=== PATIENT | female | born 1975 | race Caucasian/White ===

== ENCOUNTER 2022-04-08 16:43 | Emergency (ER) | payer MEDICAID ==
[2022-04-08 18:29] LABS: BASOPHILS # (AUTO) 0.1 10^3/uL (0.0-0.1); BASOPHILS % (AUTO) 0.8 %; EOSINOPHILS # (AUTO) 0.3 10^3/uL (0.0-0.7); EOSINOPHILS % (AUTO) 3.4 %; HCT - HEMATOCRIT 33.1 % (37.0-47.0); LYMPHOCYTES # (AUTO) 3.1 10^3/uL (1.5-3.5); LYMPHOCYTES % (AUTO) 41.9 %; MEAN CORPUSCULAR HEMOGLOBIN 24.4 pg (27.0-31.0); MEAN CORPUSCULAR HGB CONC 30.2 g/dL (32.0-36.0); MEAN CORPUSCULAR VOLUME 80.9 fL (81.0-99.0); MEAN PLATELET VOLUME 9.1 fL (7.9-10.8); MONOCYTES # (AUTO) 0.4 10^3/uL (0.0-1.0); MONOCYTES % (AUTO) 5.3 %; NEUTROPHILS # (AUTO) 3.5 10^3/uL (1.5-6.6); NEUTROPHILS % (AUTO) 48.3 %; PLT - PLATELET COUNT 186 10^3/uL (130-450); RED BLOOD COUNT 4.09 10^6/uL (4.20-5.40); RED CELL DISTRIBUTION WIDTH 14.8 % (12.0-15.0); WHITE BLOOD COUNT 7.3 x10^3/uL (4.8-10.8)
[2022-04-08 18:34] LABS: ALBUMIN/GLOBULIN RATIO 1.2 (1.0-2.2); BILIRUBIN,TOTAL 0.5 mg/dL (0.2-1.0); CREATININE 1.2 mg/dL (0.4-1.0); POTASSIUM 3.9 mmol/L (3.5-5.0); TOTAL PROTEIN 7.4 g/dL (6.7-8.2)
--- NOTE | 2022-04-08 18:58 | ED Physician Documentation ---
History of Present Illness - Stated complaint Stated Complaint: LIGHT HEADED - Chief complaint Chief Complaint: Neuro - Additonal information Additional information: 38-year-old female presents emergency department for episodes of near syncope. She reports that over the last month or so she frequently finds that she is lightheaded and feels as though she is going to pass out especially with any stair activities such as ascending or even descending the stairs. She spoke to her study abroad advisor on the phone about this and he reduced her carvedilol from 6.25 mg daily down to 3.125 mg daily. She is scheduled to see him in follow-up in 1 month. Past medical history is most significant for myocardial infarction in 2016. She is being medically managed. She is on daily aspirin statin as well as the carvedilol. She is also on some antidepressants and various vitamins. She is denying any chest pain or shortness of air. No focal neuro symptoms. She has not fainted Review of Systems Eyes: reports: Reviewed and negative Throat: reports: Reviewed and negative Cardiac: reports: Reviewed and negative Respiratory: reports: Reviewed and negative GI: reports: Reviewed and negative : reports: Reviewed and negative Skin: reports: Reviewed and negative Musculoskeletal: reports: Reviewed and negative Neurologic: reports: Near syncope. denies: Headache, Head injury, LOC Psychiatric: reports: Reviewed and negative Endocrine: reports: Reviewed and negative PD PAST MEDICAL HISTORY - Allergies Allergies/Adverse Reactions: Allergies Allergy/AdvReac Type Severity Reaction Status Date / Time acetaminophen [From Vicodin] AdvReac Itching Verified 04/08/22 17:10 hydrocodone [From Vicodin] AdvReac Itching Verified 04/08/22 17:10 PD ED PE NORMAL - General General: Alert and oriented X 3, No acute distress - HEENT HEENT: Atraumatic, Moist mucous membranes - Neck Neck: Supple, no meningeal sign, No adenopathy - Cardiac Cardiac: RRR, No murmur - Respiratory Respiratory: No respiratory distress, Clear bilaterally - Abdomen Abdomen: Normal bowel sounds, Soft, Non tender - Back Back: No CVA TTP, No spinal TTP - Derm Derm: Normal color, Warm and dry, No rash - Extremities Extremities: No deformity, No tenderness to palpate, Normal ROM s pain - Neuro Neuro: Alert and oriented X 3, security researcher 2-12 intact Eye Opening: Spontaneous Motor: Obeys Commands - Psych Psych: Normal mood Results - Vitals Vitals: Vital Signs - 24 hr 04/08/22 04/08/22 04/08/22 17:05 19:02 19:14 Temperature 36.4 C L Heart Rate 109 H 73 Heart Rate [ 102 H Sitting] Heart Rate [ 93 Standing] Heart Rate [ 92 Supine] Respiratory 14 16 Rate Blood Pressure 96/63 119/80 Blood Pressure 111/83 H [Sitting] Blood Pressure 110/76 [Standing] Blood Pressure 129/89 H [Supine] O2 Saturation 100 98 04/08/22 19:33 Temperature Heart Rate Heart Rate [ Sitting] Heart Rate [ Standing] Heart Rate [ Supine] Respiratory 16 Rate Blood Pressure Blood Pressure [Sitting] Blood Pressure [Standing] Blood Pressure [Supine] O2 Saturation Oxygen O2 Source Room air - EKG (time done) 1846 Rate: Rate (enter#) (94) Rhythm: NSR [place]: Normal Intervals: Normal SD QRS: No: Normal (QRS greater than 112 ms.) Ischemia: Non specific changes Compare to prior EKG: Old EKG unavailable - Labs Labs: Laboratory Tests 04/08/22 04/08/22 18:20 18:20 WBC 7.3 RBC 4.09 L Hgb 10.0 L Hct 33.1 L MCV 80.9 L MCH 24.4 L MCHC 30.2 L RDW 14.8 Plt Count 186 MPV 9.1 Neut # (Auto) 3.5 Lymph # (Auto) 3.1 [place] # (Auto) 0.4 Eos # (Auto) 0.3 Baso # (Auto) 0.1 Absolute Nucleated RBC 0.00 Nucleated RBC % 0.0 Sodium 138 Potassium 3.9 Chloride 104 Carbon Dioxide 27 Anion Gap 7.0 BUN 18 Creatinine 1.2 H Estimated GFR (MDRD) 48 L Glucose 108 H Calcium 10.0 Total Bilirubin 0.5 AST 27 ALT 40 Alkaline Phosphatase 141 H Total Protein 7.4 Albumin 4.0 Globulin 3.4 Albumin/Globulin Ratio 1.2 PD MEDICAL DECISION MAKING - ED course Complexity details: reviewed results, re-evaluated patient, considered differential, d/w patient ED course: 46-year-old female presents emergency department for evaluation of several weeks near syncope especially when ascending or descending stairs. She does have a history of myocardial infarction medically managed since 2016. She does have known mitral valve regurg. Here in the emergency department screening EKG was nonischemic. CBC electrolytes and troponin were all negative. Orthostatics were also negative. her creatinine is just very mildly elevated 1.2. She may be mildly dry and I have advised her to increase her hydration. However the cause of the near syncope is not clear though I would not make a recommendation to further reduce the dose of Coreg given negative orthostatics. I make the recommendation to follow closely with cardiology. She may benefit from a Holter monitor to evaluate for tachyarrhythmia and/or an echocardiogram to evaluate structural function with a known mitral valve regurg. As well she may benefit from a stress test. Patient is comfortable with the discharge home as well is the plan for follow-up and emergent return precautions were discussed. Departure - Departure Disposition: 01 Home, Self Care Clinical Impression: Near syncope Condition: Stable Record reviewed to determine appropriate education?: Yes Instructions: ED Near Syncope Unkn Comments: Santa you are seen today in the emergency department because over the last several weeks you have had a few episodes of near syncope especially when ascending or descending stairs. I would like you to talk with your study abroad advisor about this. With your known history of mitral valve regurg as well as your previous myocardial infarction you may benefit from a Holter monitor to assess for heart rhythms with activity, an echocardiogram to evaluate for mitral valve regurgitation that could be contributing to the symptoms and/or a stress test. Here in the emergency department your labs, EKG chest x-ray did not show any worrisome findings. You did not have orthostatic hypotension. You may be just mildly dehydrated and I encourage you to increase your water intake. If at any point you find that your symptoms are worsening, you develop chest pain, shortness of air or do have fainting episodes and please return imm ediately to the ER for second evaluation.
[2022-04-08 20:29] VITALS: BP 117/83
== END 2022-04-08 20:15 | disposition home or self-care (01) ==
LOC: ED 16:43
DX: R55 Syncope and collapse (principal); R79.89 Other specified abnormal findings of blood chemistry
CPT/HCPCS: 36415; 80053; 85025; 93005; 99283; 99284

== ENCOUNTER 2022-10-15 06:32 | Emergency (ER) | payer MEDICAID ==
--- NOTE | 2022-10-15 07:53 | ED Physician Documentation ---
PD HPI HEENT - Stated complaint Stated Complaint: EAR PX - Chief complaint Chief Complaint: Heent - History obtained from History obtained from: Patient - History of Present Illness Timing - onset: Today Timing - duration: Hours (noted blood from right ear this morning. No noted trauma, sneezing, etc. Has had some congestion/seasonal allergies the past week. Ear tube in place right ear for recurrent infections and has been working okay.) Timing - details: Abrupt onset, Still present Location: Right ear Associated symptoms: Congestion. No: Fever, Rhinorrhea Recently seen: Not recently seen Review of Systems Constitutional: denies: Fever, Chills Nose: reports: Rhinorrhea / runny nose, Congestion Throat: denies: Sore throat Respiratory: denies: Cough PD PAST MEDICAL HISTORY - Past Medical History HEENT: Other (recurrent ear infections right with ear tube placed 6 months ago.) - Present Medications Home Medications: Ambulatory Orders Medication Instructions Recorded Confirmed cephALEXin [Keflex] 500 mg PO TID #20 cap 10/15/22 - Allergies Allergies/Adverse Reactions: Allergies Allergy/AdvReac Type Severity Reaction Status Date / Time acetaminophen [From Vicodin] AdvReac Itching Verified 04/08/22 17:10 hydrocodone [From Vicodin] AdvReac Itching Verified 04/08/22 17:10 PD ED PE NORMAL - Vitals Vital signs reviewed: Yes - General General: Alert and oriented X 3, No acute distress, Well developed/nourished - HEENT HEENT: Pharynx benign, Other (left ear and canal normal. Right canal normal. TM with eartube in place, some clot of blood in canal. No purulence but the TM is red and swollen, with purple blood behind it. No active bleeding from tube.) - Neck Neck: Supple, no meningeal sign, No adenopathy Results - Vitals Vitals: Vital Signs - 24 hr 10/15/22 08:25 Heart Rate 89 Respiratory 16 Rate Blood Pressure 114/82 H O2 Saturation 98 Oxygen O2 Source Room air PD Medical Decision Making - ED course Complexity details: considered differential (she has ear tube still in place and seems to be working with regard to draining blood that is behind ear drum. Redness and swelling without purulence per se, but presume infectious cause. ), d/w patient Departure - Departure Disposition: 01 Home, Self Care Clinical Impression: Otitis media, Retained myringotomy tube in right ear Condition: Stable Record reviewed to determine appropriate education?: Yes Instructions: ED Otitis Media Acute Adult Prescriptions: cephALEXin [Keflex] 500 mg PO TID #20 cap Comments: The ET tube appears in place and working. There is some redness and swelling around the eardrum and the tissue around. There is some blood noted if at the ear tube. The ear canal appears normal without any signs of infection of the soft tissue there. It looks like a ear infection with some bleeding. We can treat her with cephalexin and use Tylenol ibuprofen if needed for pains. I would anticipate improvement over the next several days. I sent your prescription to [facility]. Discharge Date/Time: 10/15/22 08:27
[2022-10-15] MEDS ORDERED: IBUPROFEN 600 MG TABLET PO STA (08:05)
[2022-10-15] MEDS ORDERED: cephALEXin 250 MG CAPSULE PO STA (08:05)
[2022-10-15 08:28] VITALS: BP 114/82
== END 2022-10-15 08:27 | disposition home or self-care (01) ==
LOC: ED 06:32
DX: H66.91 Otitis media, unspecified, right ear (principal); Z96.22 Myringotomy tube(s) status
CPT/HCPCS: 99282; 99283; A9270

== ENCOUNTER 2023-03-23 11:07 | Outpatient (CLI) | payer MEDICAID ==
--- NOTE | 2023-03-23 12:06 | XRAY Report ---
PROCEDURE: Lumbar Spine 2 View INDICATIONS: LOW BACK PAIN TECHNIQUE: 3 views of the lumbar spine were acquired. COMPARISON: None. FINDINGS: Bones: 5 [id number] vertebrae are present. There is normal bony alignment. No vertebral body compression fractures. No suspicious bony lesions. No disc space narrowing. No significant degenera tive changes. No facet arthropathy. Soft tissues: Overlying bowel gas pattern is normal. No suspicious soft tissue calcifications. IMPRESSION: 1. No significant degenerative changes or disc disease identified. 2. No acute abnormality. Reviewed by: Louis Montejo on 03/23/2023 12:05 PM PDT Approved by: Louis Montejo on 03/23/2023 12:05 PM PDT Station ID: [id number]
== END 2023-03-23 11:08 | disposition home or self-care (01) ==
LOC: DI 11:07
PROVIDERS: ATTEND Family Medicine
DX: M54.50 Low back pain, unspecified (principal)

== ENCOUNTER 2023-06-28 14:11 | Emergency (ER) | payer MEDICAID ==
[2023-06-28 14:37] VITALS: BP 132/62; O2SAT 100
--- NOTE | 2023-06-28 17:09 | ED Physician Documentation ---
PD HPI HEENT - Stated complaint Stated Complaint: HEADACHE, CONGESTION - Chief complaint Chief Complaint: Resp - History obtained from History obtained from: Patient - Additional information Additional information: 47-year-old woman with history of scleroderma with remote stem cell transplant for same, history of [place]. She is been sick for a month with nonproductive cough, was seen in the clinic and got prednisone, but worsened over the last day with a lot of sinus pressure. No fevers. PD PAST MEDICAL HISTORY - Past Medical History Past Medical History: Yes Cardiovascular: Hypertension Respiratory: Asthma Endocrine/Autoimmune: HyPOthyroidism GI: GERD HEENT: Other Psych: Depression - Past Surgical History Past Surgical History: Yes - Present Medications Home Medications: Ambulatory Orders Medication Instructions Recorded Confirmed cephALEXin [Keflex] 500 mg PO TID #20 cap 10/15/22 Albuterol Sulf [Ventolin Hfa 1 - 2 puffs INH Q4HR PRN #1 each 06/28/23 Inhaler] Amox/Clav 875/125 [Augmentin] 1 each PO Q12H #20 tablet 06/28/23 Benzonatate [Tessalon] 200 mg PO TID PRN #20 cap 06/28/23 - Allergies Allergies/Adverse Reactions: Allergies Allergy/AdvReac Type Severity Reaction Status Date / Time hydrocodone [From Vicodin] AdvReac Itching Verified 06/28/23 16:50 - Social History Does the pt smoke?: No Smoking Status: Never smoker Does the pt drink ETOH?: No Does the pt have substance abuse?: No - Immunizations Immunizations are current?: Yes PD ED PE NORMAL - Vitals Vital signs reviewed: Yes - General General: Alert and oriented X 3, No acute distress - HEENT HEENT: Other (TMs normal, tender to both maxillary sinuses. Oropharynx normal.) - Neck Neck: Supple, no meningeal sign, No bony TTP - Cardiac Cardiac: RRR, No murmur - Respiratory Respiratory: No respiratory distress, Other (Mild expiratory wheeze, no focal findings) - Abdomen Abdomen: Non tender Results - Vitals Vitals: Vital Signs - 24 hr 06/28/23 14:23 Temperature 36.8 C Heart Rate 100 Respiratory 16 Rate Blood Pressure 132/62 H O2 Saturation 100 Oxygen O2 Source Room air Departure - Departure Disposition: Home, Self Care Clinical Impression: Sinusitis Qualifiers: Sinusitis location: unspecified location Chronicity: acute Recurrence: recurrent Qualified Code(s): J01.91 - Acute recurrent sinusitis, unspecified Condition: Good Record reviewed to determine appropriate education?: Yes Instructions: ED Sinusitis Abx Tx Prescriptions: Albuterol Sulf [Ventolin Hfa Inhaler] 1 - 2 puffs INH Q4HR PRN #1 each PRN Reason: Shortness Of Air/Wheezing Amox/Clav 875/125 [Augmentin] 1 each PO Q12H #20 tablet Benzonatate [Tessalon] 200 mg PO TID PRN #20 cap PRN Reason: Cough Comments: I sent your prescription electronically to [facility] in [place]. It seems today that you probably have a sinus infection, and I am prescribing antibiotics, something for the cough, and an inhaler. Call your doctor to arrange a follow-up appointment, make the next available appointment. In the interim, return anytime if worse or if new symptoms develop.
== END 2023-06-28 17:17 | disposition home or self-care (01) ==
LOC: ED 14:11
DX: J01.91 Acute recurrent sinusitis, unspecified (principal); I10 Essential (primary) hypertension; E03.9 Hypothyroidism, unspecified; Z79.899 Other long term (current) drug therapy
CPT/HCPCS: 99283

== ENCOUNTER 2023-07-25 19:28 | Emergency (ER) | payer MEDICAID ==
[2023-07-25 19:37] VITALS: BP 160/76; O2SAT 100
--- NOTE | 2023-07-25 19:43 | ED Physician Documentation ---
History of Present Illness - Stated complaint Stated Complaint: VO/EAR PX/COUGH - Chief complaint Chief Complaint: General - History obtained from History obtained from: Patient - Additonal information Additional information: History of remote stem cell transplant for scleroderma. Had a URI with sinusitis last month, got better but now today with severe left ear pain. No fevers. Also has some rib pain from coughing. No shortness of breath. PD PAST MEDICAL HISTORY - Past Medical History Past Medical History: Yes Cardiovascular: Hypertension Respiratory: Asthma Endocrine/Autoimmune: HyPOthyroidism GI: GERD HEENT: Other Psych: Depression - Past Surgical History Past Surgical History: Yes - Present Medications Home Medications: Ambulatory Orders Medication Instructions Recorded Confirmed cephALEXin [Keflex] 500 mg PO TID #20 cap 10/15/22 Albuterol Sulf [Ventolin Hfa 1 - 2 puffs INH Q4HR PRN #1 each 06/28/23 Inhaler] Amox/Clav 875/125 [Augmentin] 1 each PO Q12H #20 tablet 06/28/23 Benzonatate [Tessalon] 200 mg PO TID PRN #20 cap 06/28/23 Amox/Clav 875/125 [Augmentin] 1 each PO Q12H #20 tablet 07/25/23 HYDROcod/ACETAM 5/325 [[place] 5/325] 1 - 2 tab PO Q6H PRN #15 tablet 07/25/23 - Allergies Allergies/Adverse Reactions: Allergies Allergy/AdvReac Type Severity Reaction Status Date / Time hydrocodone [From Vicodin] AdvReac Itching Verified 07/25/23 19:31 - Social History Does the pt smoke?: No Smoking Status: Never smoker Does the pt drink ETOH?: No Does the pt have substance abuse?: No - Immunizations Immunizations are current?: Yes - POLST Patient has POLST: No PD ED PE NORMAL - Vitals Vital signs reviewed: Yes - General General: Alert and oriented X 3, No acute distress - HEENT HEENT: PERRL, EOMI, Pharynx benign, Other (Mild right otitis media, and very severe left otitis media, without rupture) - Cardiac Cardiac: RRR, No murmur - Respiratory Respiratory: No respiratory distress, Clear bilaterally - Abdomen Abdomen: Non tender - Neuro Neuro: Alert and oriented X 3, Normal speech Results - Vitals Vitals: Vital Signs - 24 hr 07/25/23 19:31 Temperature 37.4 C Heart Rate 100 Respiratory 20 Rate Blood Pressure 160/76 H O2 Saturation 100 Oxygen O2 Source Room air PD Medical Decision Making - ED course ED course: 47-year-old woman with history of stem cell transplant with severe left otitis media. Will treat with Augmentin. Needs something for pain and despite listed allergies to hydrocodone was fine. Departure - Departure Disposition: 01 Home, Self Care Clinical Impression: LOM (left otitis media) Qualifiers: Otitis media type: suppurative Chronicity: acute Recurrence: non-recurrent Spontaneous tympanic membrane rupture: without spontaneous rupture Qualified Code(s): H66.002 - Acute suppurative otitis media without spontaneous rupture of ear drum, left ear Condition: Good Record reviewed to determine appropriate education?: Yes Instructions: ED Otitis Media Acute Adult Prescriptions: Amox/Clav 875/125 [Augmentin] 1 each PO Q12H #20 tablet HYDROcod/ACETAM 5/325 [[place] 5/325] 1 - 2 tab PO Q6H PRN #15 tablet PRN Reason: Pain Comments: I sent your prescriptions electronically to the [facility] in [place]. Drink plenty of fluids and rest. You can take ibuprofen in addition to the prescription pain medication for pain as they work in different ways. Call your doctor to arrange a follow-up appointment, make the next available appointment. In the interim, return anytime if worse or if new symptoms develop. I am prescribing a short course of narcotic pain medication for you. These are potentially dangerous and addictive medications that should be used carefully. These medications may constipate you. Take an wzee-woz-ccedssa stool softener (docusate) twice daily with plenty of water while taking these medications. If you go 24 hours without a bowel movement, take [id number] miralax, per package instructions. Do not drink or drive while taking these medications. If you received narcotic or sedating medications while in the emergency department, do not drive for 24 hours. Store this medication in a safe, secure place and out of reach of children. It is a violation of federal law to give or sell this medication to another person or to use in a manner other than prescribed. The ED will not refill narcotic prescriptions, including prescriptions lost or stolen. To dispose of unwanted medications: 1. [facility]'s Office provides a drop box for medication in pill form only (no liquids) 8:00 am to 4:30 p.m. Thursday-Thursday in the lobby of the [facility], [address] Empty pills into ziplock bag before disposal. Call [phone] for information. 2.[employer] is a free service available to all [facility] residents. Go to [email or web address] Note that many narcotic pain relievers also contain Tylenol/acetaminophen. Please ensure that your total dose of acetaminophen from all sources does not exceed 3 g (3000 mg) per day.
[2023-07-25] MEDS: AMOX/CLAV 875 MG/125 MG TABLET PO STA (19:49)
[2023-07-25] MEDS: HYDROcod/ACET 5/325 Prepack 4 PO STA (19:50)
== END 2023-07-25 19:53 | disposition home or self-care (01) ==
LOC: ED 19:28
DX: H66.93 Otitis media, unspecified, bilateral (principal); Z88.5 Allergy status to narcotic agent
CPT/HCPCS: 99282; 99283; A9270

== ENCOUNTER 2023-08-08 14:45 | Outpatient (CLI) | payer MEDICAID | END 2023-08-08 14:46 | disposition critical access hospital (66) | LOC: EMS 14:45 | DX: R07.89 Other chest pain (principal); I47.10 Supraventricular tachycardia, unspecified | CPT/HCPCS: A0425; A0427; A0999 ==

== ENCOUNTER 2023-08-08 15:07 | Emergency (ER) | payer MEDICAID ==
--- NOTE | 2023-08-08 15:32 | ED Physician Documentation ---
History of Present Illness - Stated complaint Stated Complaint: CP - Chief complaint Chief Complaint: Cardiac - History obtained from History obtained from: Patient - History of Present Illness Timing: Today Pain level max: 0 Pain level now: 0 - Additonal information Additional information: 47-year-old female states that she had palpitations starting today. She states that they did not go away this morning. Therefore she went to the walk-in clinic. Found to be in SVT, 911 was called. EMS gave her 6 mg of adenosine, converted back into sinus rhythm. She is currently asymptomatic. She states that she did have a heart attack several years ago. She states she did not have any stents placed. She states she sees Dr. Rojas, cardiology at [facility] in [place]. She states that she has echocardiograms approximately every 2 years and they have been normal. She states that she has had palpitations in the past but they never lasted this long. She is on carvedilol at home. Review of Systems Constitutional: denies: Fever, Chills GI: denies: Vomiting, Diarrhea Skin: denies: Rash Musculoskeletal: denies: Neck pain, Back pain Neurologic: denies: Headache PD PAST MEDICAL HISTORY - Past Medical History Cardiovascular: Hypertension Respiratory: Asthma Endocrine/Autoimmune: HyPOthyroidism GI: GERD HEENT: Other Psych: Depression - Past Surgical History Past Surgical History: Yes - Present Medications Home Medications: Ambulatory Orders Medication Instructions Recorded Confirmed cephALEXin [Keflex] 500 mg PO TID #20 cap 10/15/22 07/25/23 Albuterol Sulf [Ventolin Hfa 1 - 2 puffs INH Q4HR PRN #1 each 06/28/23 07/25/23 Inhaler] Amox/Clav 875/125 [Augmentin] 1 each PO Q12H #20 tablet 07/25/23 HYDROcod/ACETAM 5/325 [[place] 5/325] 1 - 2 tab PO Q6H PRN #15 tablet 07/25/23 - Allergies Allergies/Adverse Reactions: Allergies Allergy/AdvReac Type Severity Reaction Status Date / Time hydrocodone [From Vicodin] AdvReac Itching Verified 08/08/23 15:15 - Social History Does the pt smoke?: No Smoking Status: Never smoker Does the pt drink ETOH?: No Does the pt have substance abuse?: No - Immunizations Immunizations are current?: Yes - POLST Patient has POLST: No PD ED PE NORMAL - Vitals Vital signs reviewed: Yes - General General: Alert and oriented X 3, No acute distress - HEENT HEENT: Moist mucous membranes - Neck Neck: Supple, no meningeal sign - Cardiac Cardiac: RRR, Strong equal pulses - Respiratory Respiratory: No respiratory distress, Clear bilaterally - Abdomen Abdomen: Soft, Non tender, Non distended - Derm Derm: Warm and dry - Neuro Neuro: Alert and oriented X 3 - Psych Psych: Normal mood, Normal affect Results - Vitals Vitals: Vital Signs - 24 hr 08/08/23 08/08/23 08/08/23 15:11 15:30 17:11 Temperature 36.1 C L Heart Rate 110 H 111 H 98 Respiratory 18 18 16 Rate Blood Pressure 132/89 H 133/84 H 128/78 O2 Saturation 96 97 99 Oxygen O2 Source Room air - EKG (time done) 1512 EKG releavant findings:: EKG personally interpreted by author of this note. Relevant findings are: Rate: Rate (enter#) (107) Rhythm: Sinus tachycardia [place]: Normal Intervals: Normal [place] QRS: Normal Ischemia: Normal ST segments, Other (Early R wave transition) - Labs Labs: Laboratory Tests 08/08/23 08/08/23 15:21 15:21 WBC 9.2 RBC 4.68 Hgb 13.4 Hct 41.8 MCV 89.3 MCH 28.6 MCHC 32.1 RDW 14.1 Plt Count 294 MPV 8.7 Neut # (Auto) 6.3 Lymph # (Auto) 2.5 [place] # (Auto) 0.3 Eos # (Auto) 0.0 Baso # (Auto) 0.0 Absolute Nucleated RBC 0.00 Nucleated RBC % 0.0 Sodium 141 Potassium 3.8 Chloride 105 Carbon Dioxide 28 Anion Gap 8.0 BUN 26 H Creatinine 0.9 Estimated GFR (MDRD) 67 L Glucose 102 Calcium 10.3 Total Bilirubin 0.4 AST 18 ALT 27 Alkaline Phosphatase 121 Total Protein 7.2 Albumin 4.3 Globulin 2.9 Albumin/Globulin Ratio 1.5 Lipase 30 - Rads (name of study) cxr Relevant Findings:: Final report received, See rad report PD Medical Decision Making - ED course Complexity details: reviewed results, re-evaluated patient, considered differential, d/w patient ED course: 47-year-old female with an episode of SVT prior to arrival. No acute findings on x-ray. No acute findings on EKG. No significant lab abnormalities. Patient has a metal stamper that she follows up with closely in [place]. Copies of her EKG were given to her to take with her to her appointment including the EKG showing SVT from the walk-in clinic. Patient is already on carvedilol. Will have her continue this. As this is her first episode, will not adjust medications at this time. Will avoid energy drinks, caffeine. Patient continues to be asymptomatic in the emergency department. No other arrhythmias. Patient counseled regarding signs and symptoms for which I believe and urgent re-evaluation would be necessary. Patient with good understanding of and agreement to plan and is comfortable going home at this time This document was made in part using voice recognition software. While efforts are made to proofread this document, sound alike and grammatical errors may occur. Departure - Departure Disposition: 01 Home, Self Care Clinical Impression: SVT (supraventricular tachycardia) Condition: Good Instructions: ED Tachycardia Pat PSVT Follow-Up: SERGO ROJAS MD [Physician No Access] - Sergo Rojas MD [Physician No Access] - Comments: You had an episode of supraventricular tachycardia today. This resolved with adenosine. Please follow-up with your doctor for further care. Please return if you worsen. Please make sure you are drinking plenty of fluids at home, do not miss doses of your carvedilol. Avoid energy drinks, caffeine, etc. Please take the copies of the EKGs with you to your next cardiology appointment. Forms: PCP List Discharge Date/Time: 08/08/23 17:13
[2023-08-08 15:35] LABS: BASOPHILS % (AUTO) 0.4 %; EOSINOPHILS % (AUTO) 0.2 %; HCT - HEMATOCRIT 41.8 % (37.0-47.0); HGB - HEMOGLOBIN 13.4 g/dL (12.0-16.0); LYMPHOCYTES # (AUTO) 2.5 10^3/uL (1.5-3.5); LYMPHOCYTES % (AUTO) 26.7 %; MEAN CORPUSCULAR HEMOGLOBIN 28.6 pg (27.0-31.0); MEAN CORPUSCULAR HGB CONC 32.1 g/dL (32.0-36.0); MEAN CORPUSCULAR VOLUME 89.3 fL (81.0-99.0); MEAN PLATELET VOLUME 8.7 fL (7.9-10.8); MONOCYTES # (AUTO) 0.3 10^3/uL (0.0-1.0); MONOCYTES % (AUTO) 3.2 %; NEUTROPHILS # (AUTO) 6.3 10^3/uL (1.5-6.6); NEUTROPHILS % (AUTO) 68.8 %; PLT - PLATELET COUNT 294 10^3/uL (130-450); RED BLOOD COUNT 4.68 10^6/uL (4.20-5.40); RED CELL DISTRIBUTION WIDTH 14.1 % (12.0-15.0); WHITE BLOOD COUNT 9.2 x10^3/uL (4.8-10.8)
[2023-08-08 15:48] LABS: ALBUMIN 4.3 g/dL (3.2-5.5); ALBUMIN/GLOBULIN RATIO 1.5 (1.0-2.2); BILIRUBIN,TOTAL 0.4 mg/dL (0.2-1.0); CALCIUM 10.3 mg/dL (8.5-10.3); CREATININE 0.9 mg/dL (0.6-1.3); POTASSIUM 3.8 mmol/L (3.5-4.5); TOTAL PROTEIN 7.2 g/dL (6.4-8.9)
[2023-08-08] MEDS: SODIUM CHLORIDE 0.9% 1,000 ML IV STA (16:10)
--- NOTE | 2023-08-08 16:23 | XRAY Report ---
PROCEDURE: Chest 1V INDICATIONS: SVT TECHNIQUE: One view of the chest was acquired. COMPARISON: None. FINDINGS: Surgical changes and devices: None. Lungs and pleura: An incomplete inspiratory result is noted, with low lung volumes and crowding of t he vascular markings. No focal infiltrates are seen. No large pneumothorax or large pleural effusion can be seen. Mediastinum: Mediastinal contours appear normal. Heart size is normal. Bones and chest wall: No suspicious bony lesions. Overlying soft tissues appear unremarkable. IMPRESSION: Low lung volumes, without an acute cardiopulmonary abnormality seen. Reviewed by: Roe Rey MD on 08/08/2023 3:21 PM [facility] Approved by: Roe Rey MD on 08/08/2023 3:21 PM [facility] Station ID: [id number]
[2023-08-08 17:12] VITALS: BP 128/78; O2SAT 99
== END 2023-08-08 17:13 | disposition home or self-care (01) ==
LOC: EDUNIT# → ED 15:07
DX: I47.10 Supraventricular tachycardia, unspecified (principal); I10 Essential (primary) hypertension
CPT/HCPCS: 36415; 80053; 83690; 85025; 93005; 96360; 99284